=== PATIENT | male | born 1985 | race American Indian/Alaskan Native ===

== ENCOUNTER 2017-01-02 08:13 | Emergency (ER) | payer SELFPAY ==
--- NOTE | 2017-01-02 08:22 | EDM.PDOC ---
ED HPI HEAD INJURY - General Chief Complaint: ENT Problem Stated Complaint: [id number] CANT MOVE JAW HIT BY 2X4 WC Time Seen by Provider: 01/02/17 08:17 Source of Information: Reports: Patient, RN, RN notes reviewed History Limitations: Reports: No limitations - History of Present Illness INITIAL COMMENTS - FREE TEXT/NARRATIVE: Arrives by POV with c/o "can't move my jaw". Pt was accidentally struck in the jaw with a 2"x4" at work yesterday. Denies LOC or any other injury. Denies neck pain. Describes pain as an ache, rated 5-6/10. Pain is worse with ROM of jaw ( TMJ). Nothing makes the pain better. Symptom Onset Date: 01/01/17 Timing/Duration: Reports: Constant, Sudden onset Location: Reports: jaw Quality: Reports: ache Severity: moderate Place of Occurrence: work Improves with: none Worsens with: none Context: Reports: direct blow Associated Symptoms: Reports: no other symptoms - Related Data Allergies/ADRs: Allergies Allergy/AdvReac Type Severity Reaction Status Date / Time No Known Allergies Allergy Verified 01/02/17 08:28 Home Meds: Home Meds . [No Known Home Meds] 01/02/17 [History] Past Medical History - Past Health History Medical/Surgical History: Denies Medical/Surgical History Social & Family History - Family History Family Medical History: Noncontributory - Tobacco Use Smoking Status *Q: Current Every Day Smoker Tobacco Use Within Last Twelve Months: Cigarettes - Caffeine Use Caffeine Use: Reports: Coffee, Soda - Alcohol Use Alcohol Use History: No - Recreational Drug Use Recreational Drug Use: No - Living Situation & Occupation Occupation: employed ED ROS GENERAL - Review of Systems Review Of Systems: ROS reveals no pertinent complaints other than HPI. ED EXAM, HEAD INJURY - Physical Exam Exam: See Below Exam Limited By: No limitations General Appearance: alert, WD/WN, no apparent distress Head: normocephalic, facial swelling (slight at left mandibular face), facial tenderness (left TMJ and mandible). No: active bleeding, raccoon eyes Eyes: bilateral eye: EOMI, normal inspection, PERRL Ears: normal external exam, normal canal, hearing grossly normal, normal TMs. No: canal blood, TM erythema, TM blood, TM fluid, TM perforation Nose: normal inspection, normal mucousa, no blood Throat/Mouth: Normal lips, No airway compromise Neck: non-tender, full range of motion, normal alignment, normal inspection Respiratory: no respiratory distress, lungs clear, normal breath sounds, no accessory muscle use, chest non-tender Cardiovascular: regular rate, rhythm Back Exam: normal inspection Extremities: no evidence of injury, normal range of motion, non-tender Neurologic: insole and outsole splitter II-XII nml as tested, no motor/sensory deficits, alert, normal mood/affect, oriented x 3 - [place] Coma Score Best Eye Response ([place]ulu): (4) open spontaneously Best Verbal Response ([place]): (5) oriented Best Motor Response ([place]): (6) obeys commands [place] Total: 15 Course - Vital Signs Last Recorded V/S: Last Vital Signs Temp 37.7 C 01/02/17 08:30 Pulse 90 01/02/17 08:30 Resp 16 01/02/17 08:30 BP 126/78 01/02/17 08:30 Pulse Ox 99 01/02/17 08:30 - Radiology Interpretation Free Text/Narrative:: CT Max/Face: no fractures per Rad. report. CT Results Date: 01/02/17 Departure - Departure Time of Disposition: 09:25 Disposition: Home, Self-Care 01 Condition: good Clinical Impression: Encounter for assessment of work-related causation of injury Contusion of mandibular joint area Qualifiers: Encounter type: initial encounter Qualified Code(s): S00.83XA - Contusion of other part of head, initial encounter Sprain of left temporomandibular joint Qualifiers: Encounter type: initial encounter Qualified Code(s): S03.42XA - Sprain of jaw, left side, initial encounter Instructions: Jaw Contusion, [id number], Temporomandibular Joint Syndrome Forms: ED Department Discharge Additional Instructions: Soft diet as tolerated. Ice pack to jaw as needed for pain and swelling. Use over the counter Ibuprofen (Motrin/Advil) 200mg: Take 3 tablets by mouth with food every 6 hours as needed for pain. Follow up in clinic next week for recheck.
[2017-01-02 08:32] VITALS: BP 126/78
--- NOTE | 2017-01-02 09:21 | CT ---
Clinical history: 31-year-old male blunt trauma mandible (left face). Scan technique: Volume acquisition of data emergency unenhanced CT scan facial bones and jaw obtaine d with patient lying supine on the Siemens multi slice CT scanner [place], [place]. All data archived in the PAC system for storage, reformatting and study. Interpretation: Negative exam. Symmetric normal dental occlusion. No sign of mandibular fracture or temporomandibular joint dislocation (no arthritic degeneration). Dental fillings. No other foreign bodies. Symmetric normal bony orbits and zygomatic arches. Nasal septum is straight in the midline. No fractures of the nasal or anterior maxillary spine. Symm etric clear pneumatization of the paranasal and maxillary sinuses.
== END 2017-01-02 09:41 | disposition home or self-care (01) ==
LOC: DL.ED 08:13
DX: S03.42XA Sprain of jaw, left side, initial encounter (principal); S00.83XA Contusion of other part of head, initial encounter; F17.210 Nicotine dependence, cigarettes, uncomplicated; W22.8XXA Striking against or struck by other objects, initial encounter; Y99.0 Civilian activity done for income or pay
CPT/HCPCS: 70486; 99282; 99283